=== PATIENT | male | born 1970 | race Hispanic/Latino ===

== ENCOUNTER → 2016-04-25 | Outpatient (REF) | payer OTHER | LOC: M SMT 13:04 | PROVIDERS: ATTEND Nurse Practitioner Family | DX: R10.30 Lower abdominal pain, unspecified (principal) | CPT/HCPCS: 51798; 81001; 87086; 87491; 87591; G0463 ==

== ENCOUNTER → 2016-04-28 | Outpatient (CLI) | payer OTHER ==
--- NOTE | 2016-04-28 08:45 | REP ---
Clinical: Bilateral groin pain. Technique: Ness scale and color Doppler evaluation using linear and curved array transducer with color Doppler evaluation. Findings: The testicles and epididymi are relatively normal in contour, size, echogenicity, vascularity and overall appearance/contour. There is no evidence for intratesticular mass lesion, infectious/inflammatory process, with torsion. No obvious hydroceles. Small left-sided varicoceles up to 3.5 mm diameter. Right inguinal canal appears normal at rest and Valsalva. Left inguinal canal and demonstrates small fat containing hernia with Valsalva. Right testicle measures 4.7 x 2.2 x 3.1 cm cm. Left testicle measures 4.5 x 2.0 x 2.9 cm cm. Impression: Essentially normal scrotal ultrasound. Few left-sided varicoceles up to 3.5 mm diameter. Small fat containing left inguinal hernia on Valsalva. Signed by Hernandez Mitchell MD 04/28/2016 08:36 A
== END ==
LOC: M RAD 07:41
PROVIDERS: ATTEND Nurse Practitioner Family
DX: I86.1 Scrotal varices (principal); K40.90 Unilateral inguinal hernia, without obstruction or gangrene, not specified as recurrent

== ENCOUNTER 2016-10-01 01:55 | Observation (INO) | payer OTHER ==
[~2016-10-01] VITALS: Ht 172.7 cm; Wt 103.7 kg
[2016-10-01] MEDS ORDERED: MIRT30TA3 PO ×2 (02:14→05:05)
[2016-10-01] MEDS ORDERED: LUNE2TAB23 PO ×2 (02:14→05:05)
[2016-10-01] MEDS ORDERED: CITA20TA4 PO ×2 (02:14→05:05)
[2016-10-01] MEDS ORDERED: NAPR500T3 PO ×2 (02:14→05:05)
[2016-10-01] MEDS ORDERED: HYDR-3363 PO ×2 (02:14→05:05)
[2016-10-01] MEDS ORDERED: LUNE1TAB5 PO (02:14)
[2016-10-01 02:31] LABS: BASO % 0.6 % (0.0-1.0); EOS # 0.3 K/mm3 (0.0-0.50); EOS % 3.6 % (0.0-3.0); LARGE UNSTAINED CELL # 0.2 K/mm3 (0.0-0.4); LARGE UNSTAINED CELL % 2.3 % (0.0-4.0); LYMPH # 3.3 K/mm3 (1.5-4.5); LYMPH % 35.1 % (24.0-44.0); MEAN CORPUSCULAR HEMOGLOBIN 30.1 pg (27.0-33.0); MEAN CORPUSCULAR VOLUME 91.2 fl (80.0-96.0); MONO # 0.7 K/mm3 (0.0-0.8); MONO % 7.8 % (0.0-5.0); NEUTROPHILS # 4.5 K/mm3 (1.8-7.7); NEUTROPHILS % 50.6 % (36.0-66.0); PLATELET COUNT, AUTOMATED 204 k/mm3 (150-450); RED CELL DISTRIBUTION WIDTH 12.7 % (11.5-14.5); WHITE BLOOD COUNT 8.8 K/mm3 (4.0-10.0)
[2016-10-01 02:42] LABS: ALBUMIN/GLOBULIN RATIO 1.48 (1.00-1.93); ALKALINE PHOSPHATASE 89 U/L (45-117); ALT/SGPT 49 U/L (12-78); ANION GAP 6 MEQ/L (8-16); AST/SGOT 22 U/L (15-37); BILIRUBIN,DIRECT 0.1 MG/DL (0.0-0.2); BILIRUBIN,TOTAL 0.6 MG/DL (0.2-1.0); BLOOD UREA NITROGEN 20 MG/DL (7-18); CALCIUM LEVEL 8.7 MG/DL (8.5-10.1); CARBON DIOXIDE LEVEL 28 MEQ/L (21-32); CHLORIDE LEVEL 108 MEQ/L (98-107); CREATININE FOR GFR 0.87 MG/DL (0.70-1.30); GLOMERULAR FILTRATION RATE > 60.0 (>60); GLUCOSE, FASTING 90 MG/DL (70-105); SODIUM LEVEL 142 MEQ/L (136-145); TOTAL PROTEIN 6.7 GM/DL (6.4-8.2)
[2016-10-01] MEDS ORDERED: PATIENT COMMENT (05:07)
[2016-10-01] MEDS ORDERED: ACETAMINOPHEN TAB 650MG DOSE (2X325MG) PO PRN (06:00)
[2016-10-01 06:09] LABS: METHADONE URINE NEGATIVE (NEGATIVE)
--- NOTE | 2016-10-01 06:31 | HPE ---
DATE OF ADMISSION: 10/01/2016 ATTENDING PHYSICIAN: Dr. Downey. CHIEF COMPLAINT: Drug overdose and possible suicide attempt. HISTORY OF PRESENT ILLNESS: The patient is a 46-year-old Finnish male who came from [place] for above complaint. History is provided by himself, as well as by review of the chart. Per the patient, he is in the [employer] about 19 years, and he has a history of depression as well as posttraumatic stress disorder (PTSD). Also, he has a history of drug overdose and suicide attempt in the past. He states yesterday he took two tablets of Lunesta and trying to sleep. After that, he lost consciousness, the called and they brought him to the emergency room (ER) for further evaluation. In the ER, his vitals are stable, and his initial workup was insignificant. However, since it is questionable whether he took citalopram too, so poison control was contacted and recommended to admit to the medicine service for observation. REVIEW OF SYSTEMS: Denies fever. No chills, no headache, no blurred vision. No shortness of breath, no chest pain. No abdominal pain. No tingling, numbness, weakness in arms or lower extremity. All other system reviewed but negative. PAST MEDICAL HISTORY: 1. PTSD. 2. Depression. 3. Drug overdose or suicide attempt in the past. PAST SURGICAL HISTORY: Multiple small trauma surgery. FAMILY HISTORY: No family history of suicide attempt or depression. ALLERGIES: No known drug allergies. MEDICATIONS: - naproxen 500 mg as needed - Lunesta 2 mg as needed for sleep - citalopram 20 mg by mouth daily - mirtazapine 30 mg by mouth daily PHYSICAL EXAMINATION: VITAL SIGNS: Temperature 98, respirations 14, heart rate 63, oxygen 98% on room air. GENERAL: He is awake, alert, and oriented times three. He is in no acute distress. HEENT: Atraumatic. Pupils equal, round, react to light. Ears, nose and throat normal. No jaundice. Mouth mucus moist. NECK: No jugular venous distention (JVD). LUNGS: Clear. No wheezing, no crackles. HEART: S1, S2 regular. No murmur. ABDOMEN: Soft. Bowel sounds positive. Nontender. EXTREMITIES: No edema in bilateral lower extremity. SKIN: No rash. PSYCHOLOGIC: No acute psychosis. NEUROLOGIC: Nonfocal. DIAGNOSTIC LABORATORIES: CBC and differential: WBC 8.8, hemoglobin and hematocrit 16 over 48, platelets 204. Sodium is 142, potassium 4.0, BUN 20, creatinine 0.8, glucose is 90. TSH within normal limits. EKG reviewed which is normal sinus rhythm. IMPRESSION: 1. Possible drug overdose and suicide attempt. 2. Posttraumatic stress disorder (PTSD). 3. Depression. PLAN: The patient will be admitted to the progressive care unit (PCU) for observation, and he needs a psychiatric evaluation. We will hold his depression medications now. Dr. Downey will followup in the morning.
[2016-10-01 08:15] VITALS: BP 157/95
[2016-10-01] MEDS ORDERED: VOLT1GEL15 TOP (10:01)
[2016-10-01] MEDS ORDERED: GLUCTAB6 PO (10:01)
[2016-10-01] MEDS ORDERED: LIDO5DIS41 TD (10:01)
[2016-10-01 11:40] VITALS: BP 136/72
--- NOTE | 2016-10-01 14:32 | MHCRPDOC ---
[facility] Consultation Consultation DATE OF CONSULTATION: 10/01/16 CONSULTATION REQUESTED BY: DR. PERALTA REASON FOR CONSULTATION: PT. LOST CONSCIOUSNESS AFTER TAKING 2 LUNESTA TABLETS, POSSIBLY WITH CITALOPRAM. QUESTIONS ABOUT INTENTIONAL OVERDOSE OR SUICIDAL THOUGHTS MOTIVATED THE CONSULT RELEVANT HISTORY: PATIENT IS AN ACTIVE [employer] WHO WAS ADMITTED AFTER HE INGESTED TWO TABLETS OF LUNESTA AND DIDN'T WAKE UP. HE DIDN'T REMEMBER WHAT HAPPENNED. HIS BROUGHT HIM TO THE HOSPITAL. PAST PSYCHIATRIC HISTORY: PT. HAS A HISTORY OF PTSD PATIENT HAS HISTORY OF DEPRESSION,HE HAS BEEN TREATED AT [facility], HAS BEEN TAKING LUNESTA 2 TABLETS AT BEDTIME.HE ALSO HAS A HISTORY OF TAKING REMERON AND CITALOPRAM. PATIENT IS ALERT AND ORIENTED X 3. HE IS COOPERATIVE WITH INTERVIEW, WITH [facility] CONTACT, DRESSED IN HOSPITAL CLOTHES, LAYING IN BED. ADMITS TO HAVE SUICIDAL IDEATION AND SAYS HE HAS BEEN ABLE TO BLOCK IT BUT IT COMES BACK OVER AND OVER AGAIN AND HE HAS THOUGHT MANY TIMES IT WOULD BE BETTER FOR HIM TO BE AND FOR HIS FAMILY TOO. HE SAYS IF HE WOULD , HIS FAMILY COULD BENEFIT FROM HIS LIFE INSURANCE AND AT LEAST WITH THAT, HE WOULD BE CONTRIBUTING. EXPRESSES GUILTY FEELINGS, LACK OF ENERGY, PROBLEMS WITH SLEEP, PROBLEMS WITH ATTENTION AND CONCENTRATION, FEELS ANXIOUS ALMOST ALL THE TIME, HAS LOW SELF ESTEEM, DIFFICULTIES IN MAKING DECISIONS, SOCIAL ISOLATION, LACK OF INTEREST, ANHEDONIA AND SUICIDAL THOUGHTS WITHOUT A SPECIFIC PLAN. PLAN----- PATIENT NEEDS TO BE TRANSFERED TO THE INPATIENT MENTAL HEALTH UNIT FOR TREATMENT AND STABILIZATION. HE IS A DANGER TO SELF A T THIS TIME. Vital Signs Vital Signs Date Time Temp Pulse Resp B/P (MAP) Pulse Ox O2 Delivery O2 Flow Rate FiO2 10/01/16 11:40 98.0 63 20 136/72 (93) 99 Room Air Laboratory Data 24H Labs Laboratory Tests 2 10/01/16 02:10: White Blood Count 8.8, Red Blood Count 5.35, Hemoglobin 16.1, Hematocrit 48.8, Mean Corpuscular Volume 91.2, Mean Corpuscular Hemoglobin 30.1, Mean Corpuscular Hemoglobin Concent 33.0, Red Cell Distribution Width 12.7, Platelet Count 204, Neutrophils (%) (Auto) 50.6, Lymphocytes (%) (Auto) 35.1, Monocytes ( %) (Auto) 7.8H, Eosinophils (%) (Auto) 3.6H, Basophils (%) (Auto) 0.6, Neutrophils # (Auto) 4.5, Lymphocytes # (Auto) 3.3, Monocytes # (Auto) 0.7, Eosinophils # (Auto) 0.3, Basophils # (Auto) 0.0, Large Unclassified Cells % 2.3 , Large Unclassified Cells # 0.2, Anion Gap 6L, Glomerular Filtration Rate > 60.0, Osmolality 296H, Calcium Level 8.7, Aspartate Amino Transf (AST/SGOT) 22, Alanine Aminotransferase (ALT/SGPT) 49, Alkaline Phosphatase 89, Total Bilirubin 0.6, Direct Bilirubin 0.1, Total Creatine Kinase 165, Total Protein 6.7, Albumin 4.0, Albumin/Globulin Ratio 1.48, Thyroid Stimulating Hormone (TSH ) 4.350H, Salicylates Level < 1.7L, Acetaminophen Level < 2.0L, Ethyl Alcohol Level < 0.003 10/01/16 05:36: Urine Amphetamines Screen NEGATIVE, Urine Benzodiazepines Screen NEGATIVE, Urine Opiates Screen NEGATIVE, Urine Methadone Screen NEGATIVE, Urine Barbiturates Screen NEGATIVE, Urine Phencyclidine Screen NEGATIVE, Urine Cocaine Metabolite Screen NEGATIVE, Urine Cannabinoids Screen NEGATIVE Home Medications Current Medications Current Medications Acetaminophen (Tylenol Tab) 650 mg Q4HP PRN PO MILD PAIN OR FEVER; Start at 06:00; Stop 10/31/16 at 05:59 Home Med (Med Rec Complete!) ASDIRECTED XX ; Start 10/01/16 at 05:15; Stop at 05:15; Status DC Scheduled (Glucosamine Chondroitin) 1 Tab Tab, 1 TAB PO BID, (Reported) Citalopram Hydrobromide (Citalopram Hydrobromide) 20 Mg Tab, 20 MG PO DAILY, ( Reported) OBTAINED FROM [facility] Lidocaine (Lidoderm) 5 % Dis, 1-3 PATCH TD DAILY, (Reported) OBTAINED FROM [facility] Scheduled PRN (Voltaren) 1 % Gel, 4 GRAMS TOP QID PRN for PAIN, (Reported) OBTAINED FROM [facility] APPLY TO KNEE Eszopiclone (Lunesta) 2 Mg Tab, 2 MG PO QHS PRN for INSOMNIA, (Reported) UNSURE OF WHERE IT IS GETTING FILLED Allergies Coded Allergies: Aspirin (Verified Allergy, Unknown, 10/01/16) DANY BARAJAS MD Oct 01, 2016 14:32
--- NOTE | 2016-10-02 11:17 | ECGEPIP ---
Stationary ECG Study [facility] - ED Test Date: 2016-10-01 Pat Name: RICO RAO Department: Room: [place] [address] Gender: M Soda Tester: david : 1970 Requested By: ONEAL REVELES Order Number: [id number] Reading MD: La Nena Guerrero Measurements Intervals [place] Rate: 45 P: 45 OR: 170 QRS: 1 QRSD: 110 T: -7 QT: 436 QTc: 377 Interpretive Statements SINUS BRADYCARDIA MINIMAL VOLTAGE CRITERIA FOR LVH, CONSIDER NORMAL VARIANT NONSPECIFIC T-WAVE ABNORMALITY NO PRIOR FOR COMPARISON Electronically Signed On 10-02-2016 11:16:54 EDT by La Nena Guerrero
== END 2016-10-01 17:00 ==
LOC: EDBD 01:55 → M ED 01:55 → M ED INP 01:56 → M PCU 07:40
PROVIDERS: ADMIT Hospitalist; ATTEND General Practice
DX: R41.82 Altered mental status, unspecified (principal); R00.1 Bradycardia, unspecified; F32.9 Major depressive disorder, single episode, unspecified; F43.10 Post-traumatic stress disorder, unspecified; Z91.5 Personal history of self-harm; Z79.899 Other long term (current) drug therapy; Z88.8 Allergy status to other drugs, medicaments and biological substances
CPT/HCPCS: 36415; 80048; 80076; 80307; 82550; 83930; 84443; 85025; 93005; 93041; 94760; 99285; G0480

== ENCOUNTER 2016-10-01 17:03 | Inpatient (IN) | payer OTHER ==
[~2016-10-01] VITALS: Ht 170.2 cm; Wt 105.4 kg
[~2016-10-01 17:03] MED LIST: CITA20TA4 PO; GLUCTAB6 PO; HYDR-3363 PO; LIDO5DIS41 TD; LUNE1TAB5 PO; LUNE2TAB23 PO; MIRT30TA3 PO; NAPR500T3 PO; PATIENT COMMENT; VOLT1GEL15 TOP
[2016-10-01 17:15] VITALS: BP 132/90
[2016-10-01] MEDS ORDERED: ACETAMINOPHEN TAB 650MG DOSE (2X325MG) PO PRN (17:15)
[2016-10-01] MEDS ORDERED: IBUPROFEN 400 MG TAB PO PRN (17:15)
[2016-10-01] MEDS ORDERED: MOM 30ML SUSPENSION UDC PO PRN (17:15)
[2016-10-01] MEDS ORDERED: hydrOXYzine 50 MG TAB PO PRN (17:15)
[2016-10-02 07:13] VITALS: BP 131/90
[2016-10-02] MEDS: SERTRALINE HCL 50 MG TAB PO SCH ×3 (09:00→12:41)
--- NOTE | 2016-10-02 11:09 | HPEPDOC ---
Medical History and Physical Date of Admission Oct 01, 2016 at 17:03 History and Physical PCP: [facility] ATTENDING: Dr. Cecil Garrido HPI: 46 yo M admitted to [facility] for depressive disorder, being medically examined today. The patient was admitted to [facility] 10/01/16 following overdose of Lunesta. The patient was subsequently felt stable to transfer to [facility] 10/01/16. No acute medical complaints today. Denies any fevers, chills, weakness, fatigue, THOMAS, CP, SOB, cough, palpitations, abdominal pain, N/V/D or changes in bowel or bladder habits. PMHx: Depression PTSD History of SI in the past. Drug overdose. Insomnia Chronic low back pain/osteoarthritis. Follows with orthopedics at [place] PSHX: Repair of small laceration hands bilaterally. Knee surgery 2. SOCHX: Resides in: [place], from [place] Marital Status: Kids: 2 Employment: Active duty Tobacco use: Denies ETOH: Denies Illicit Drugs: Denies IV Drug Use: Denies Tattoos done unprofessionally: Denies FAMHX: Mother: Alive, heart disease Father: Alive, prostate cancer Siblings: Alive, well Children: Alive, well Unexpected deaths due to medical reasons: None. ROS: As noted in HPI, otherwise 11pt ROS of systems reviewed and remarkable for chronic low back pain. The patient states his pain is controlled with Tylenol or ibuprofen as needed. PE: GEN: 46 yo M, appears stated age. Well-nourished, well developed. No acute distress. Alert and oriented x 3. Pleasant, interactive. HEENT: Normocephalic, atraumatic. Pupils are equal, round, and reactive to light. Extraocular movements are intact. No nystagmus appreciated. Sclera are nonicteric. Conjunctiva without injection. Nose midline. Nasal turbinates without bogginess. EACs both patent BL. TMs both visualized and yeung with good cone of light, no bulging or erythema. No facial asymmetry. Moist mucous membranes. Dentition fair. Pharynx pink and moist, no cobblestoning. Neck supple , trachea midline. No lymphadenopathy or thyromegaly appreciated. CHEST: Regular rate and rhythm, +S1, +S2 LUNGS: Clear to auscultation bilaterally. No wheezes, rales, or rhonchi. Breathing appears symmetric and easy. Patient is speaking in full sentences. No accessory muscle use. ABD: Round, soft, non-tender, non-distended. +Bowel sounds throughout. No rebound or guarding. No costovertebral angle tenderness. EXT: Pulses 2+ bilaterally dorsalis pedis and radial. No lower extremity edema appreciated. SKIN: [place], dry, warm. Capillary refill <2sec. No rashes. NEURO: Alert and oriented x 3. Cranial nerves III-XII are intact. No focal deficits appreciated. EKG: Pending. A&P: 46 yo M admitted to [facility] for depressive disorder 1. Psych. Plan per Psychiatry. Obtain baseline EKG to assure the safety of psychiatric medications as they can prolong the QT interval. 2. Chronic back pain. Continue ibuprofen 400 mg every 6 hours as needed. 3. Follow up with PCP on discharge. 4. Abnormal TSH. Recheck TFTs in a.m. 5. Staff member Charlie present throughout exam. Vital Signs Vital Signs Date Time Temp Pulse Resp B/P (MAP) Pulse Ox O2 Delivery O2 Flow Rate FiO2 10/02/16 09:20 Room Air 10/02/16 07:13 97.5 75 18 131/90 (104) 10/01/16 17:15 98 Laboratory Data Labs 24H Item Value Date Time White Blood Count 8.8 K/mm3 10/01/16209 Red Blood Count 5.35 M/mm3 10/01/16 021 Hemoglobin 16.1 g/dl 10/01/16 021 Hematocrit 48.8 % 10/01/16209 Mean Corpuscular Volume 91.2 fl 10/01/16209 Mean Corpuscular Hemoglobin 30.1 pg 10/01/16209 Mean Corpuscular Hemoglobin Concent 33.0 g/dl 10/01/16209 Red Cell Distribution Width 12.7 % 10/01/16209 Platelet Count 204 k/mm3 10/01/16209 Sodium Level 142 MEQ/L 10/01/16 021 Potassium Level 4.0 MEQ/L 10/01/16 021 Chloride Level 108 MEQ/L H 10/01/16 021 Carbon Dioxide Level 28 MEQ/L 10/01/16209 Anion Gap 6 MEQ/L L 10/01/16209 Blood Urea Nitrogen 20 MG/DL H 7209 Creatinine 0.87 MG/DL 10/01/16209 Glomerular Filtration Rate > 60.0 10/01/16209 Fasting Glucose 90 MG/DL 10/01/16209 Osmolality 296 MOSM/KG H 10/01/16209 Calcium Level 8.7 MG/DL 10/01/16209 Total Bilirubin 0.6 MG/DL 10/01/16209 Direct Bilirubin 0.1 MG/DL 10/01/16209 Aspartate Amino Transf (AST/SGOT) 22 U/L 10/01/16209 Alanine Aminotransferase (ALT/SGPT) 49 U/L 10/01/16209 Alkaline Phosphatase 89 U/L 10/01/16209 Total Creatine Kinase 165 U/L 10/01/16209 Total Protein 6.7 GM/DL 10/01/16209 Albumin 4.0 GM/DL 10/01/16209 Albumin/Globulin Ratio 1.48 10/01/16209 Thyroid Stimulating Hormone (TSH) 4.350 uIU/ML H 10/01/16209 Salicylates Level < 1.7 MG/DL L 10/01/16209 Urine Opiates Screen NEGATIVE 10/01/16535 Urine Methadone Screen NEGATIVE 10/01/16535 Acetaminophen Level < 2.0 UG/ML L 10/01/16209 Urine Barbiturates Screen NEGATIVE 10/01/16535 Urine Phencyclidine Screen NEGATIVE 10/01/16535 Urine Amphetamines Screen NEGATIVE 10/01/16535 Urine Benzodiazepines Screen NEGATIVE 10/01/16535 Urine Cocaine Metabolite Screen NEGATIVE 10/01/16535 Urine Cannabinoids Screen NEGATIVE 10/01/16535 Ethyl Alcohol Level < 0.003 % 10/01/16209 Home Medications Scheduled (Glucosamine Chondroitin) 1 Tab Tab, 1 TAB PO BID Citalopram Hydrobromide (Citalopram Hydrobromide) 20 Mg Tab, 20 MG PO DAILY OBTAINED FROM [facility] Lidocaine (Lidoderm) 5 % Dis, 1-3 PATCH TD DAILY OBTAINED FROM [facility] Scheduled PRN (Voltaren) 1 % Gel, 4 GRAMS TOP QID PRN for PAIN OBTAINED FROM [facility] APPLY TO KNEE Eszopiclone (Lunesta) 2 Mg Tab, 2 MG PO QHS PRN for INSOMNIA UNSURE OF WHERE IT IS GETTING FILLED Allergies Coded Allergies: Aspirin (Verified Allergy, Unknown, 10/01/16) Nayely Serrano Oct 02, 2016 11:09
--- NOTE | 2016-10-02 11:54 | MHHPEPDOC ---
[facility] History & Physical History and Physical DATE OF ADMISSION: Oct 01, 2016 at 17:03 LEGAL STATUS AT ADMISSION: 9.39 CHIEF COMPLAINT: Patient apparently overdosed on Lunesta and his brought him to the Emergency room. He says he took the ususal dose ( 2 mgs.) and took Remeron too. He doesn't remeber what happnned and was surprised to wake up in the Hospital. HISTORY OF THE PRESENT ILLNESS: Patient is a 46-year-old male, who was admitted for what it seemed an overdose on Lunesta but patient says this was not an intentional overdose, he took 2 tablets, his usual dose and took Remeron too, "because my doctor had told me to combine both medications if I couldn't sleep only with Lunest'. patient describes problems falling asleep, feeling extremely tired in the mornings, lack of interest, anhedonia, social isolation, guilt and remorse, problems with attention and concentration and suicidal thought s that he has tried to block but has not been able to. He reported sometimes he thinks he would be better off than alive. he says if he would be , at least his and children would be able to get his life insurance. patient reports feeling overwhelmed by the transition he is facing. 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 He stock'nt know if he will be approved for disability,( he hasn't applied yet), he worries about money, worries about the safety of his and children, worries about his job and about the future. he has been diagnosed with PTSD since several years ago. It is combat related. PSYCHIATRIC REVIEW OF SYSTEMS: Affective: Helpless, anxious, lack of interest, social isolation, suicidal thoughts Anxiety: Extremely anxious, fidgety, worries about his future especially when he is out of the worries about his fainacial situation, worriesa bout his and children's security Trauma: combat related trauma Psychosis: Denies Personally: needs further assessment PAST PSYCHIATRIC HISTORY: Prior Psychiatric Disorder: Patient received prescriptions from the doctor at [place] in [place]. Diagnosed with PTSD. Outpatient Treatment: He only receives medications but is not receiving therapy from [facility] [place] Suicidal/Self injurious: 16 years ago he tried to kill himself with a mix of bleach and detergents. He was brought to [facility] and admitted to [facility] for SA. He was stationed at [place]. He was having marital problems and he admits he did it to manipulate his to stay with him. Psychotropic Medication History: Citalopram, Remeron, Lunesta ALLERGIES: Please see below. FAMILY PSYCHIATRIC HISTORY: Patient says that he ignores if there's a family history but he has not seen any of his family members suffering from psychiatric illness. SOCIAL HISTORY: Early Relations/development: He describes his childhood as normal, happy. Sibling order: He's the oldest, has two siblings, one sister (42) and a brother (38). Paternal relationships: Has a good relationship with parents who live in [place]. They visit and keep in touch. Education: He's currently studying [employer]. Occupational: Active duty, staff sergeant. Legal: Denies Martial: (22 years), has two children, (21 and 20). both are males. Economic: He's been having financial problems because his children's college is costly and he's retiring from the [employer] in February because it's almost 20 years of his career. Supports: , children and parents 9 parents live in [place] and would be emotionally supportive only) Abuse/trauma: Denies SUBSTANCE ABUSE HISTORY: Denies PAST MEDICAL/SURGICAL HISTORY: 1. Osteoarthritis. 2. Knee injury/pain. VITAL SIGNS: Temperature , pulse , respiratory rate , blood pressure , pulse oximetry % on room air. MENTAL STATUS EXAMINATION: General appearance: Patient is a 46-year old male, who is alert, cooperative, nervous, dressed in hospital clothes, with good eye contact and good hygiene.. Speech: Spontaneous and fluid. Thought processes: Intact. Thought content: Anxious, worried about work, finances, the future,. Abstract reasoning and computation: Fair. Description of associations: Good. Description of abnormal or psychotic thoughts: Denies auditory and visual hallucinations, denies thought delusions, denies flashbacks, denies homicidal ideation, denies active suicidal thoughts. Judgment: Limited Insight: Limited. Orientation: Oriented x 3 Recent and remote memory: Intact Attention span and concentration: Fair. Fund of knowledge: Fair. Mood: "I'm worried about his transition in my life. I worry a lot." Affect: Depressed/anxious DIAGNOSES: 1. PTSD 2. GENERALIZED ANXIETY DISORDER 3. Obsessive compulsive traits ASSESSMENT: Patient is depressed but his depression was not listed in his diagnosis because it is part of PTSD. Patient says he might be fine and then all of a sudden he starts getting depressed and starts having SI. he says he feels overwhelmed and worried about the transition from going from the to the "civil" life. has financial problems, work lrelated stressors because he always tries to do more than he is suppossed to, he wants to have everything under control, make no mistakes. PROBLEM LIST: 1. Risk for suicide 2. Anxiety. 3. Depression. INITIAL TREATMENT PLAN: 1. Patient was admitted on a 9. 2. Complete history was obtained. 3. With patients permission, family will be contacted and database will be expanded. 4. Patients medication regimen will be reviewed and changed accordingly. 5. Patient will be provided with protected environment. 6. Patient will be treated with individual, group, and milieu therapies. 7. Patient will receive supportive psych-education. 8. Discharge planning will commence immediately. 9. Outpatient follow-up treatment will be strongly recommended. 10. The initial treatment plan will focus initially on: * Depression. * Risk for suicide. * Substance abuse. ESTIMATED LENGTH OF STAY: 5-7 DAYS. TIME SPENT COUNSELING AND COORDINATING INITIAL CARE: 60 minutes. Medications Scheduled (Glucosamine Chondroitin) 1 Tab Tab, 1 TAB PO BID, (Reported) Citalopram Hydrobromide (Citalopram Hydrobromide) 20 Mg Tab, 20 MG PO DAILY, ( Reported) OBTAINED FROM [facility] Lidocaine (Lidoderm) 5 % Dis, 1-3 PATCH TD DAILY, (Reported) OBTAINED FROM [facility] Scheduled PRN (Voltaren) 1 % Gel, 4 GRAMS TOP QID PRN for PAIN, (Reported) OBTAINED FROM [facility] APPLY TO KNEE Eszopiclone (Lunesta) 2 Mg Tab, 2 MG PO QHS PRN for INSOMNIA, (Reported) UNSURE OF WHERE IT IS GETTING FILLED Allergies Coded Allergies: Aspirin (Verified Allergy, Unknown, 10/01/16) DANY BARAJAS MD Oct 02, 2016 11:54
[2016-10-02 18:00] VITALS: BP 130/94
--- NOTE | 2016-10-03 00:30 | ECGEPIP ---
Stationary ECG Study [facility] Test Date: 2016-10-02 Pat Name: RICO RAO Department: Room: [place] [address] Gender: M Special Needs Caregiver: LINDA : 1970 Requested By: Nayely Serrano Order Number: [id number] Reading MD: Cecil Garrido Measurements Intervals [place] Rate: 69 P: 59 W[place]: 169 QRS: -6 QRSD: 108 T: -4 QT: 380 QTc: 409 Interpretive Statements SINUS RHYTHM MODERATE VOLTAGE CRITERIA FOR LVH, CONSIDER NORMAL VARIANT Nonspecific T wave abnormality Electronically Signed On 10-03-2016 0:29:56 EDT by Cecil Garrido
[2016-10-03 06:27] VITALS: BP 120/83
[2016-10-03] MEDS: SERTRALINE HCL 50 MG TAB PO SCH (08:11)
[2016-10-03 18:00] VITALS: BP 133/76
[2016-10-04 06:36] VITALS: BP 140/82
[2016-10-04] MEDS: SERTRALINE HCL 25 MG TABLET PO SCH (08:22)
[2016-10-04 18:15] VITALS: BP 130/83
[2016-10-04] MEDS: traZODone 50 MG TAB PO PRN (21:34)
[2016-10-04] MEDS: ARIPiprazole 2 MG TAB PO SCH (21:34)
[2016-10-05 06:08] VITALS: BP 157/93
[2016-10-05] MEDS: SERTRALINE HCL 25 MG TABLET PO SCH (08:21)
[2016-10-05 12:05] LABS: ALBUMIN 3.7 GM/DL (3.2-5.2); ALBUMIN/GLOBULIN RATIO 1.19 (1.00-1.93); BILIRUBIN,DIRECT 0.1 MG/DL (0.0-0.2); BILIRUBIN,TOTAL 0.6 MG/DL (0.2-1.0); TOTAL PROTEIN 6.8 GM/DL (6.4-8.2)
[2016-10-05 18:22] VITALS: BP 140/84
--- NOTE | 2016-10-05 20:56 | ECGEPIP ---
Stationary ECG Study [facility] Test Date: 2016-10-05 Pat Name: RICO RAO Department: Room: [place] [address] Gender: M Sander Machine: AUGUSTINE : 1970 Requested By: DANY Morel Order Number: [id number] Reading MD: Cecil Garrido Measurements Intervals [place] Rate: 90 P: 59 SC: 174 QRS: 14 QRSD: 103 T: 5 QT: 336 QTc: 412 Interpretive Statements SINUS RHYTHM NONSPECIFIC T-WAVE ABNORMALITY Electronically Signed On 10-05-2016 20:56:49 EDT by Cecil Garrido
[2016-10-05] MEDS: ARIPiprazole 2 MG TAB PO SCH (20:57)
[2016-10-05] MEDS: traZODone 50 MG TAB PO PRN (20:57)
--- NOTE | 2016-10-05 21:43 | MHIPN ---
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 The patient reports that he does not remember anything and reportedly he only took one tablet of Lunesta 2 mg and possibly Remeron at night. 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 VITAL SIGNS: Stable. NEW TEST RESULTS: None. CURRENT MEDICATIONS: The patient continues on the same medications. MENTAL STATUS EXAMINATION: The patient is a 46-year-old male who is alert, oriented times three, cooperative with interview, slightly less anxious than yesterday. Speech is coherent, spontaneous. Language skills are fair. Thought process is intact. Thought content is coherent. Description of abnormal or psychotic thoughts: The patient denies auditory or visual hallucinations. Denies thought delusions. Denies homicidal or suicidal ideation. Judgment is poor. Insight is poor. Orientation: He is oriented times three. Recent and remote memory is fair. Attention span and concentration are fair. Language is normal. Fund of knowledge is fair. Mood and affect are anxious. DIAGNOSES: 1. Major depressive disorder, moderate to severe. 2. Posttraumatic stress disorder (PTSD). ASSESSMENT: The patient is facing a very difficult situation at work, financially and at home. The patient has had very poor judgment and now is facing the consequences of this poor judgment. The patient continues to deny intentional overdose and he says that he really does not know what happened to him. It is interesting because the urine toxicology was run at the emergency room on the date that he was admitted and it was completely negative for any substances, so he could not have overdosed. The patient has reported in the past 16 years ago that he made a mix of bleach and detergent in order to manipulate his to stay with him. He says that his apparent overdose was of purpose and not of killing himself. It could be that at the present time because he is facing very serious problems, he could have tried to manipulate different people in his life like he did in the past. In regard to his management, he will continue the same medications and we will encourage him to attend groups. His judgment, insight and impulse control are very poor. We will followup .
[2016-10-06 06:46] VITALS: BP 140/95
[2016-10-06] MEDS: SERTRALINE HCL 25 MG TABLET PO SCH (08:09)
--- NOTE | 2016-10-06 10:01 | MHIPN ---
DATE OF SERVICE: 10/04/2016 HISTORY: 46-year-old male who was brought to the emergency room when he was found by his acting strangely, as if he was not there, sleep walking. Patient had a history of taking Lunesta 2 mg at bedtime and Remeron 30 mg at the same time. Patient has denied consistently intentional overdose. SUBJECTIVE: This conventional underwriter was able to meet with patient's who reported that she heard a big noise the night she found out her was acting strangely. She says that he fell and then she saw him walking down the stairs as if he was not completely there, then she saw that he walked towards the refrigerator and the microwave, got things out of the oven, specifically meat that she had in there and proceeded to make himself a sandwich but like "__a zombie" ." She says he did not look well, she kept talking to him and he would not respond. Eventually, when he finished eating, he was going upstairs again and was going to go and knock at their sons' bedroom and she pulled him down the stairs again because she thought he could fall. At that moment, she tried to establish contact with him, she kept talking but he was not there. So at that time, she called 911 and that is when he was picked up by the ambulance and brought to the emergency room. She says, she initially thought that he had overdosed intentionally but she has realized that, that was not the case, that he was not pretending, that she does not know what is going on with her . The only thing that she knows is that he has had too much stress from work, and financial strain. Patient reports feeling slightly better, feeling anxious but less than previously. OBJECTIVE: Patient is alert and oriented times three, cooperative with interview, dressed in personal and hospital clothes, a mix and match of both of them. Normal speech, thought process is intact, thought content is coherent. Patient is denying suicidal and homicidal ideation, denies thought process, denies auditory or visual hallucinations and denies thought delusions. His memory is fair but he cannot recall the events that occurred during the night when was brought to the hospital. His insight and judgment are fair. His impulse control is fair at this time. ASSESSMENT: 1. Posttraumatic stress disorder (PTSD). 2. Rule out major depressive disorder with psychotic features. 3. Generalized anxiety disorder. 4. Obsessive compulsive traits. PLAN: Patient will continue on the same medications. He has been attending groups and will be encouraged to keep attending them. Medication will be increased tomorrow, 10/05/2016, to 100 mg of Zoloft, patient seems to be responding well to combination of Zoloft and Abilify. Will followup. [facility]
--- NOTE | 2016-10-06 10:02 | MHIPN ---
DATE OF SERVICE: 10/03/2016 HISTORY: 46-year-old male who was brought to the emergency room after his reported finding him laying on the floor at home with bizarre behavior. Patient takes Lunesta 2 mg by mouth nightly and Remeron on unspecified doses, and he believes that the combination of these two medications cause him to sleep walk. He denies intentional overdose. SUBJECTIVE: Patient reported feeling very anxious but less than the day that he was admitted. He reports financial problems, job problems, feeling overwhelmed, unable to disconnect at home, difficulty falling asleep because he keeps thinking about his problems. Currently denies suicidal ideation. OBJECTIVE: Patient is alert and oriented times three, dressed in personal clothes, cooperative with interview. His speech is coherent, his thought process is intact, his thought content is anxious, with issues related to his work. He denies suicidal or homicidal ideation, denies auditory and visual hallucinations. Denies thought delusions. Attention and concentration are fair, memory is fair, fund of knowledge is fair. Insight and judgment are fair, impulse control is limited. ASSESSMENT: Patient is depressed but he does not allow himself to express the magnitude of his depression, his entire world is falling apart, he has severe problems at work and financial problems but he is still wanting to control everything around him. He continues to deny intentional overdose. He could have disassociated, it is a possibility since patient suffers posttraumatic stress disorder (PTSD). So I think this should be considered. MANAGEMENT PLAN: We will continue the same medications, will increase sertraline to 75 mg by mouth daily and will start him on Abilify 2 mg by mouth nightly to boost the antidepressant effect of sertraline but also because he seems to have a problem with impulse control, sometimes he makes wrong decisions and also because it can help him with these episodes that seem to be blackouts and they could be related to PTSD. We will monitor closely and will followup.
[2016-10-06 18:00] VITALS: BP 137/77
--- NOTE | 2016-10-06 18:28 | MHIPN ---
DATE: 10/05/2016 46-year-old male, who was brought to the emergency room after his found him acting strangely, almost like "zombie". that he had overdosed medications, he has denied it over and over again, but says he has no recollection of what happened to him during that night except that he remembers taking Lunesta 2 mg and Remeron in the usual dose. SUBJECTIVE: The patient reports feeling much better, especially after Abilify was added to his medications. He says it has helped him to sleep well, he is able to disconnect from his work and financial worries that usually bother him at night, before going to sleep. He says that he felt drowsy this morning, his blood pressure has been high during the morning he says and this was verified by this information writer. Denies suicidal ideation. OBJECTIVE: The patient is alert and oriented times three, cooperative, looks better, more motivated and happier. He is less anxious and less depressed, he has spontaneous and fluid speech, his thought process is intact and his thought content is coherent. He has no thought disorder, he is not delusional, denies auditory and visual hallucinations and denies suicidal and homicidal ideation. His memory is intact. His attention and concentration are fair, his judgment and insight are improving and his impulse control is improving too. ASSESSMENT: 1. Post-traumatic stress disorder (PTSD). 2. Generalized anxiety disorder. 3. Obsessive-compulsive traits. 4. Rule out dissociative disorder. MANAGEMENT PLAN: The patient will continue with the same medication, I do not think it is necessary to increase Zoloft to 100 mg, he is doing well with Zoloft 75 mg by mouth every day and Abilify 2 mg by mouth at bedtime. Will continue with current treatment, encourage him to attend groups. Will followup.
[2016-10-06] MEDS: ARIPiprazole 2 MG TAB PO SCH (20:54)
[2016-10-06] MEDS: traZODone 50 MG TAB PO PRN (20:54)
[2016-10-07 06:00] VITALS: BP 134/87
[2016-10-07] MEDS: SERTRALINE HCL 25 MG TABLET PO SCH (09:03)
--- NOTE | 2016-10-07 10:59 | MHIPN ---
DATE: 10/06/2016 46-year-old male who was brought to the emergency room after his found him acting strangely, almost like a zombie. The thought that he had overdosed on medications, but he has denied it over and over again. He says that he has no recollection of what happened that night, except that he remembers taking Lunesta 2 mg and Remeron at the usual dose. SUBJECTIVE: The patient was seen this morning, and he had happily reported feeling much better, being able to sleep and not think about his financial or work problems. OBJECTIVE: The patient is alert, oriented times three, cooperative, looking happy and active, with coherent speech, intact thought process and coherent thought content. He denies suicidal ideation, denies homicidal ideation, denies psychosis. Memory is intact, attention and concentration are fair, fund of knowledge is fair. Insight and judgment are fair, impulse control is good. ASSESSMENT: 1. Post traumatic stress disorder (PTSD). 2. Generalized anxiety disorder. 3. Obsessive compulsive traits. 4. Rule out dissociative disorder. MANAGEMENT PLAN: The patient will continue on same medications and regarding his high cholesterol levels will inquire with physician business support assistant tomorrow as of which option is best for him regarding this problem (which medication is better for him for high cholesterol). The patient's EKG is within the normal range. Order EEG in order to rule out seizure disorder or any other neurological problem. Will followup.
[2016-10-07 18:00] VITALS: BP 132/86
[2016-10-07] MEDS: ATORVASTATIN 20 MG TAB PO SCH (18:58)
[2016-10-07] MEDS: ARIPiprazole 2 MG TAB PO SCH (21:12)
[2016-10-07] MEDS: traZODone 50 MG TAB PO PRN (21:12)
[2016-10-08 07:06] VITALS: BP 140/80
--- NOTE | 2016-10-08 07:38 | EEG ---
DATE OF PROCEDURE: REFERRING PHYSICIAN: Dr. Katty Medellin EEG NUMBER: [id number] DIAGNOSIS: Blanking spells, rule out seizures. HISTORY: The patient is a 46-year-old male with episodes of blanking out. He is admitted at the inpatient mental health unit with depression and Lunesta overdose. This EEG was done to rule out epileptic potential. He is currently taking Abilify, hydroxyzine, trazodone, Zoloft, etc. TECHNICAL DESCRIPTION: This digital EEG was recorded by 21 scalp, ear and two EKG electrodes and was reviewed in bipolar and referential montages following reformatting in 10-20 international electrode placement system. INTERPRETATION: The patient was noted to be in awake and drowsy states during this EEG. Resting awake background rhythm consisted of 11 Hz alpha activity measuring 15-20 microvolts in amplitude which was symmetric and reactive to eye opening. Attenuation of posterior dominant rhythm was seen during transition into drowsiness. Anteriorly low voltage and mixed frequency activity was noted. Stage I and II sleep were reviewed and were symmetric bilaterally. Hyperventilation elicited mild theta slowing of background rhythm. Photic stimulation at 3-30 Hz elicited symmetric photic driving, especially at mid frequencies. EKG revealed normal sinus rhythm. No focal, lateralizing or epileptiform abnormalities were seen. No clinical or electrographic seizures were recorded. CONCLUSION: This EEG in awake, drowsy states, stage I and II sleep is within normal limits.
[2016-10-08] MEDS: ATORVASTATIN 20 MG TAB PO SCH (08:14)
[2016-10-08] MEDS: SERTRALINE HCL 25 MG TABLET PO SCH (08:14)
--- NOTE | 2016-10-08 09:52 | MHIPN ---
DATE: 10/07/2016 46-year-old male who was brought to the emergency room after his found him acting strangely, he fell, he "was not there", as his describes him. The thought that he had overdosed on medications but he has denied it over and over again. He says that he has no recollection of what happened that night, except that he remembers taking Lunesta 2 mg and Remeron at the usual dose. SUBJECTIVE: Patient was seen this morning, he was happy, with energy, smiling and reported doing better, with more energy levels, being able to sleep and not that worried abut his future. He says he is taking things at a time and that when he goes to sleep he is not overwhelmed by his problems anymore. OBJECTIVE: Patient is alert, oriented times three, cooperative with interview. His mood and affect are euthymic, brighter. He is not responding to internal stimuli, has no thought delusions. He is not homicidal or suicidal. His thought process and thought content are coherent and goal directed. His judgment and insight are good, his impulse control is good, memory is intact, attention and concentration are good. ASSESSMENT: 1. Post traumatic stress disorder (one). 2. Generalized anxiety disorder. 3. Obsessive compulsive traits. 4. Rule out dissociative disorder. 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 Patient will followup at behavioral health at [facility] and will continue on current medications upon discharge. Patient needs long-term treatment psychotherapy and medication.
[2016-10-08] MEDS ORDERED: ATOR1TAB21 PO (09:55)
[2016-10-08] MEDS ORDERED: SERT25TA PO (09:55)
[2016-10-08] MEDS ORDERED: ARIP2TAB PO (09:55)
[2016-10-08] MEDS ORDERED: TRAZO50TA PO (09:55)
[2016-10-08] MEDS ORDERED: HYDRO50TAB PO (09:55)
--- NOTE | 2016-10-08 22:14 | MHDSPDOC ---
[facility] Discharge Summary Discharge Summary DATE OF ADMISSION: Oct 01, 2016 at 17:03 DATE OF DISCHARGE: Oct 08, 2016 at 11:55 DISCHARGE DIAGNOSES: 1. PTSD 2. Generalized Anxiety Disorder REASON FOR ADMISSION: Patient was admitted due to bizarre behavior after a possible overdose of Lunesta and Remeron. Per Dr. Medellin's HPI: "Patient is a 46-year-old male, who was admitted for what it seemed an overdose on Lunesta but patient says this was not an intentional overdose, he took 2 tablets, his usual dose and took Remeron too, "because my doctor had told me to combine both medications if I couldn't sleep only with Lunest'. patient describes problems falling asleep, feeling extremely tired in the mornings, lack of interest, anhedonia, social isolation, guilt and remorse, problems with attention and concentration and suicidal thought s that he has tried to block but has not been able to. He reported sometimes he thinks he would be better off than alive. he says if he would be , at least his and children would be able to get his life insurance. patient reports feeling overwhelmed by the transition he is facing. 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 He stock'nt know if he will be approved for disability,( he hasn't applied yet), he worries about money, worries about the safety of his and children, worries about his job and about the future. he has been diagnosed with PTSD since several years ago. It is combat related." CONSULTANTS INVOLVED: None TREATMENT AND PROGRESS ON THE UNIT : Patient was admitted to the unit on a status. He was started on Zoloft and Abilify to which he responded well with no reported side effects. Patient was also encouraged to attend group sessions while on the unit. HOSPITAL COURSE: Patient was admitted on 39 status. Initially he was observed to be withdrawn with a depressed look and had limited responses. He was started on Zoloft 50mg and Abilify 2mg; Zoloft was increased to 75mg and the Abilify was untouched. He reported minimal to no side effects. Patient was encouraged to attend group sessions which he reported enjoying. Patient was observed to gradually brighten in affect and become more animated during interviews. He reported that he was not suicidal or homicidal consistently throughout his stay. There was concerns based upon reports from the patient's that he had staring spells in which she would repeatedly call his name without response. It was thought that the patient might be experiencing dissociative episodes secondary to his PTSD but an EEG was conducted to rule out absence seizures. The EEG demonstrated normal brain activity without evidence of focal seizures. Patient was discharged on his 6th day and appeared much improved. He reported feeling better, "like I did when I was younger". He was observed to be laughing , smiling, and joking appropriately during interviews. Patient expressed plans to lose weight and work on control of his cholesterol. 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 DISCHARGE ASSESSMENT: 46 year old man with history of PTSD and Generalized Anxiety Disorder. Patient was experiencing insomnia and dissociative episodes on admission that were likely related to untreated PTSD and anxiety. After being started on anti-depressant medication the patient's mood improved greatly and he was able to engage in psychotherapy. Patient will need continued psycho- and pharmacotherapy for treatment of his disorders. At this time he is not a danger to himself or others and is demonstrating normal functioning with his ADLs. There are no barriers to discharge at this time and the patient is in agreement to continue with outpatient management through [facility]. MENTAL STATUS EXAMINATION ON DISCHARGE: Patient is a 46 year old man who is dressed in clothes appropriate to the season and appears the stated age. His speech is observed to be fluent with a normal rate and rhythm. He has logical, linear, and goal-directed thought which is negative for suicidal or homicidal ideation. Patient's abstraction is intact as are his associations. He denies the presence of auditory or visual hallucinations as well as paranoid or delusional thoughts; he does not appear internally preoccupied and no delusional thoughts are elicited during the interview. Patient's stated mood is "happy", affect is euthymic and full range. His insight and judgement appear good. MEDICATIONS ON DISCHARGE: - Zoloft 75mg daily for depressed mood and SEJAL - Abilify 2mg nightly for depressed mood and disordered thinking - Lipitor 10mg daily for hypercholesterolemia PLAN/FOLLOWUP ARRANGEMENTS: Discharging to outpatient care at [facility]. The patient will be leaving from the unit with plans to immediately go to [facility] to be established. Patient will be receiving therapy and medication management from the team at [facility]. The amount of time spent in the coordination of care for this patient was approximately 30 minutes. Vital Signs/I&Os Vital Signs Date Time Temp Pulse Resp B/P (MAP) Pulse Ox O2 Delivery O2 Flow Rate FiO2 10/08/16 07:06 97.2 81 18 140/80 (100) 10/07/16 07:52 Room Air 10/07/16 06:00 98 Medications Scheduled (Glucosamine Chondroitin) 1 Tab Tab, 1 TAB PO BID, (Reported) Aripiprazole (Aripiprazole) 2 Mg Tab, 2 MG PO QHS for MOOD, #14 Atorvastatin Calcium (Atorvastatin Calcium) 20 Mg Tab, 20 MG PO DAILY for hypercholesterolemia, #7 Lidocaine (Lidoderm) 5 % Dis, 1-3 PATCH TD DAILY, (Reported) OBTAINED FROM [facility] Sertraline Hcl (Sertraline HCl) 25 Mg Tab, 75 MG PO DAILY for DEPRESSION, #21 Scheduled PRN (Voltaren) 1 % Gel, 4 GRAMS TOP QID PRN for PAIN, (Reported) OBTAINED FROM [facility] APPLY TO KNEE Hydroxyzine HCl (Hydroxyzine HCl) 50 Mg Tab, 50 MG PO Q4HP PRN for ANXIETY/ AGITATION, #21 Trazodone HCl (Trazodone HCl) 50 Mg Tab, 50 MG PO QHSP PRN for INSOMNIA, #7 Allergies Coded Allergies: Aspirin (Verified Allergy, Unknown, 10/01/16) LEFTY POTTS MD Oct 08, 2016 22:14
== END 2016-10-08 11:55 | disposition home or self-care (01) | DRG 882 ==
LOC: M PSY 17:03
PROVIDERS: ADMIT Psychiatry & Neurology Psychiatry; ATTEND Psychiatry & Neurology Psychiatry
DX: F43.10 Post-traumatic stress disorder, unspecified (principal); F32.2 Major depressive disorder, single episode, severe without psychotic features; F41.1 Generalized anxiety disorder; F42.9 Obsessive-compulsive disorder, unspecified; F44.9 Dissociative and conversion disorder, unspecified; G47.00 Insomnia, unspecified; M54.5 Low back pain; Z79.899 Other long term (current) drug therapy; Z88.6 Allergy status to analgesic agent; Z91.5 Personal history of self-harm